=== PATIENT | male | born 1965 | race Caucasian/White ===

== ENCOUNTER 2017-11-17 09:12 | Emergency (ER) | payer OTHER ==
[~2017-11-17] VITALS: Ht 177.8 cm; Wt 94.3 kg
[~2017-11-17 09:12] MED LIST: ASPI-113 PO; GLIP5TAB11 PO; HYDR-4383 PO; METF1000 PO
[2017-11-17 09:15] VITALS: TEMP 36.8; Ht 177.8 cm; Wt 94.3 kg
[2017-11-17] MEDS ORDERED: ONDANSETRON INJ 2 MG/ML 2 ML VIAL IV STA (09:48)
[2017-11-17] MEDS ORDERED: MoRPHine SULFATE 4 MG/ML 1 ML CARP\\VIAL IV STA (09:48)
[2017-11-17 10:14] LABS: BASO % 0.1 %; BASO ABS # 0.01 K/uL (0-0.2); EOS % 0.7 %; EOS ABS # 0.07 K/uL (0-0.5); HEMATOCRIT 45.8 % (42-52); HEMOGLOBIN 17.2 g/dL (14.0-18.0); IG# 0.02 K/uL (0.00-0.02); LYMPH % 38.5 %; LYMPH ABS # 3.77 K/uL (1.2-3.4); MEAN CELL VOLUME 82.4 fL (80-100); MEAN CORPUSCULAR HEMOGLOBIN 30.9 pg (25-34); MEAN CORPUSCULAR HGB CONC 37.6 g/dl (32-36); MEAN PLATELET VOLUME 9.7 fL (7.4-10.4); MONO % 5.6 %; MONO ABS # 0.55 K/uL (0.11-0.59); NEUT % 54.9 %; NEUT ABS # 5.36 K/uL (1.4-6.5); PLATELET COUNT 190 K/uL (130-400); RED CELL DISTRIBUTION WIDTH SD 39.1 fL (36.4-46.3); WHITE BLOOD COUNT 9.78 K/uL (4.8-10.8)
--- NOTE | 2017-11-17 10:22 | EMERGENCY ROOM VISIT NOTE ---
History Report prepared by Mansi: Britton Ellis Under the Supervision of: Dr. Augustus Mays M.D. First contact with patient: 09:39 Chief Complaint: PENIS PAIN Stated Complaint: PAIN- WILL NOT DISCUSS WHERE Nursing Triage Summary: Pt states "My foreskin is retracted and I can't urinate and my penis is turning purple. This is the 3rd day." History of Present Illness The patient is a 52 year old male who presents to the Emergency Room with complaints of constant paraphimosis. The patient is uncircumcised. He states that his foreskin retracted and got stuck two days ago. He states that the foreskin tore as he tried to return the foreskin to normal position. The patient states that his penis has a purplish discoloration. He also complains of difficulty with urination. He denies fevers, or chills. The patient has a history of Type II Diabetes. He has a history of chronic back pain. Source of History: patient Onset: Two days ago Position: other (penis) Quality: other (paraphimosis) Timing: constant Associated Symptoms: + urinary symptoms (difficulty urinating), No fevers, No chills Review of Systems See HPI for pertinent positives & negatives. A total of 10 systems reviewed and were otherwise negative. Past Medical & Surgical Medical Problems: (1) Chronic back pain Old medical records were reviewed. Nurse's notes were reviewed and I agree with. Family History No pertinent family history stated. Social History Smoking Status: Current Some Day Smoker Current/Historical Medications Scheduled Aspirin Enteric Coated (Ecotrin Or Generic), 325 MG PO BID Glipizide (Glucotrol), 2.5 MG PO DAILY Metformin Hcl (Glucophage), 1,000 MG PO BID Allergies Coded Allergies: Penicillins (Verified Allergy, Unknown, UNKNOWN, 11/17/17) Sulfa Drugs (Verified Allergy, Unknown, UNKNOWN, 11/17/17) Physical Exam Vital Signs Date Time Temp Pulse Resp B/P (MAP) Pulse Ox O2 Delivery O2 Flow Rate FiO2 11/17/17 11:41 101 18 128/83 96 11/17/17 09:15 36.8 129 18 141/93 96 Room Air Physical Exam General: Non-ill appearing middle aged male in no acute distress. HEENT: Normal cephalic atraumatic. Pupils are equal round and reactive to light. Extraocular movements are intact. Oropharynx is pink with moist mucous membranes. No swelling of the mouth lips or tongue. Neck: Supple with a midline trachea. No meningeal signs or stiffness, no JVD or bruits. No Stridor. Chest: Clear to auscultation bilaterally. No wheezes or rhonchi. No increased work of breathing. Heart: regular rate and rhythm. Abdomen: Soft nontender, nondistended without rebound guarding or rigidity. : Tip of penis is significantly swollen and red. Extremities: No cyanosis clubbing or edema. No calf tenderness or assymetry Spine/Back. Non tender to palpation. No CVA tenderness Skin: Good turgor without rashes. Neurologic exam: Cranial nerves two through 12 are intact. Motor and sensation are intact and symmetrical throughout. Medical Decision & Procedures Laboratory Results 11/17/17 09:50 Red Blood Count 5.56, Mean Corpuscular Volume 82.4, Mean Corpuscular Hemoglobin 30.9, Mean Corpuscular Hemoglobin Concent 37.6, Mean Platelet Volume 9.7, Neutrophils (%) (Auto) 54.9, Lymphocytes (%) (Auto) 38.5, Monocytes (%) (Auto) 5.6, Eosinophils (%) (Auto) 0.7, Basophils (%) (Auto) 0.1, Neutrophils # (Auto) 5.36, Lymphocytes # (Auto) 3.77, Monocytes # (Auto) 0.55, Eosinophils # (Auto) 0.07, Basophils # (Auto) 0.01 11/17/17 09:50 Test 11/17/17 09:50 White Blood Count 9.78 K/uL (4.8-10.8) Red Blood Count 5.56 M/uL (4.7-6.1) Hemoglobin 17.2 g/dL (14.0-18.0) Hematocrit 45.8 % (42-52) Mean Corpuscular Volume 82.4 fL (80-100) Mean Corpuscular Hemoglobin 30.9 pg (25-34) Mean Corpuscular Hemoglobin Concent 37.6 g/dl (32-36) Platelet Count 190 K/uL (130-400) Mean Platelet Volume 9.7 fL (7.4-10.4) Neutrophils (%) (Auto) 54.9 % Lymphocytes (%) (Auto) 38.5 % Monocytes (%) (Auto) 5.6 % Eosinophils (%) (Auto) 0.7 % Basophils (%) (Auto) 0.1 % Neutrophils # (Auto) 5.36 K/uL (1.4-6.5) Lymphocytes # (Auto) 3.77 K/uL (1.2-3.4) Monocytes # (Auto) 0.55 K/uL (0.11-0.59) Eosinophils # (Auto) 0.07 K/uL (0-0.5) Basophils # (Auto) 0.01 K/uL (0-0.2) RDW Standard Deviation 39.1 fL (36.4-46.3) RDW Coefficient of Variation 13.0 % (11.5-14.5) Immature Granulocyte % (Auto) 0.2 % Immature Granulocyte # (Auto) 0.02 K/uL (0.00-0.02) Anion Gap 9.0 mmol/L (3-11) Est Creatinine Clear Calc Drug Dose 129.0 ml/min Estimated GFR () 121.4 Estimated GFR (Non- 104.7 BUN/Creatinine Ratio 18.9 (10-20) Calcium Level 9.2 mg/dl (8.5-10.1) Chemistry Specimen Hemolysis Laboratory studies as stated above per my review. Medications Administered Medications (Trade) Dose Ordered Sig/Jessica Route Start Time Stop Time Status Last Admin Dose Admin Morphine Sulfate (MoRPHine SULFATE INJ) 4 mg NOW STAT IV 11/17/17 09:48 11/17/17 09:49 DC 11/17/17 10:00 4 MG Ondansetron HCl (Zofran Inj) 4 mg NOW STAT IV 11/17/17 09:48 11/17/17 09:49 DC 11/17/17 09:59 4 MG Oxycodone HCl (Roxicodone Immediate Rel 5MG Home Pack) 1 homepack UD ONCE PO 11/17/17 11:45 11/17/17 11:46 DC 11/17/17 11:40 1 HOMEPACK ED Course 0939: Past medical records reviewed. The patient was evaluated in room C3, and a complete history and physical examination were performed. 0948: Ordered Zofran Inj 4 mg IV, Morphine Sulfate 4 mg IV. 1029: I checked in on the patient. Urology is at bedside. The patient feels comfortable. 1118: Upon reevaluation, the patient is resting comfortably. I discussed the results and treatment plan with him. He verbalized agreement of the treatment plan. The patient was discharged home. Medical Decision Differentials include, but are not limited to; paraphimosis, infection, and STI. This patient comes in as described above. He's had trouble with his foreskin retracting for 3 days now. He has pain and swelling in his penis. On exam, it does appear to be a band at the base with swollen glands. IV access was established was given morphine 4 mg IV and Zofran 4 mg IV. I called and consulted urology immediately after examining him. He was reassessed frequently. He was much more comfortable with this. He has no white count or fever to suggest infection. Blood sugar was elevated at 390 however he has no evidence suggest DKA. He is to check his blood sugar frequently home. The urology team arrived promptly and have reduced his foreskin and see him in the office for an elective circumcision. Medication Reconcilliation Current Medication List: was personally reviewed by me Blood Pressure Screening Patient's blood pressure: Elevated blood pressure Blood pressure disposition: Elevated BP felt to be situational Consults Time Called: 943 Consulting Physician: Mora MEZA - Urology Returned Call: [phone] Discussed the patient's case. Mora MEZA will come see the patient in the ED. 1108: Spoke with Mora MEZA. The patient successfully had his paraphimosis reduced. Mora Covarrubias feels that the patient is safe for discharge with outpatient follow up. Impression Primary Impression: Paraphimosis Scribe Attestation The scribe's documentation has been prepared under my direction and personally reviewed by me in its entirety. I confirm that the note above accurately reflects all work, treatment, procedures, and medical decision making performed by me. Departure Information Dispostion Home / Self-Care Forms HOME CARE DOCUMENTATION FORM, IMPORTANT VISIT INFORMATION, WORK / SCHOOL INSTRUCTIONS Patient Instructions My [facility] [employer] Additional Instructions Rest. Check her blood sugar frequently Return if: Increasing pain or swelling, recurrence of symptoms, fever or chills , trouble emptying her bladder, any new problems or concerns Follow-up with Dr. Lea for further definitive care
[2017-11-17] MEDS ORDERED: XYLOCAINE 1%/SOD BICARB 20 ML VIAL INFIL ONE (10:23)
[2017-11-17 10:46] LABS: CALCIUM 9.2 mg/dl (8.5-10.1); CREATININE 0.79 mg/dl (0.60-1.40); POTASSIUM 4.1 mmol/L (3.5-5.1)
--- NOTE | 2017-11-17 10:48 | Urology Consultation ---
History General Date of Service: Nov 17, 2017. Chief Complaint: retracted foreskin Primary Care Physician: No Doctor, Assigned Pt seen a urologist before?: No History of Present Illness 52 yo male presents to [facility] with c/o difficulty urinating and retracted foreskin x 3 days. He reports he has tried pulling his foreskin back over the glans himself, but has been unable to do so d/t the pain. He reports weak stream and hesitancy at this time. Denies dysuria or hematuria. He denies difficulty voiding prior to onset. Laboratory Last 24 Hours Test 11/17/17 09:50 White Blood Count 9.78 K/uL Red Blood Count 5.56 M/uL Hemoglobin 17.2 g/dL Hematocrit 45.8 % Mean Corpuscular Volume 82.4 fL Mean Corpuscular Hemoglobin 30.9 pg Mean Corpuscular Hemoglobin Concent 37.6 g/dl Platelet Count 190 K/uL Mean Platelet Volume 9.7 fL Neutrophils (%) (Auto) 54.9 % Lymphocytes (%) (Auto) 38.5 % Monocytes (%) (Auto) 5.6 % Eosinophils (%) (Auto) 0.7 % Basophils (%) (Auto) 0.1 % Neutrophils # (Auto) 5.36 K/uL Lymphocytes # (Auto) 3.77 K/uL Monocytes # (Auto) 0.55 K/uL Eosinophils # (Auto) 0.07 K/uL Basophils # (Auto) 0.01 K/uL RDW Standard Deviation 39.1 fL RDW Coefficient of Variation 13.0 % Immature Granulocyte % (Auto) 0.2 % Immature Granulocyte # (Auto) 0.02 K/uL Past History diabetes, other (hx of HTN and high cholesterol improved after losing 100lbs) Past Surgical History: THR, vasectomy Family History prostate cancer, heart disease, diabetes Social History Hx Tobacco Use In Past Year?: Yes (occasional, quit a year ago) Smoking: less than 1 pack/day Alcohol: occasional (1-2 beers per month) Drug use: none Marital status: Housing status: lives with family Occupation status: employed Immunizations History of Influenza Vaccine: No History of Tetanus Vaccine?: No History of Pneumococcal: No History of Hepatitis B Vaccine: No Allergies Coded Allergies: Penicillins (Verified Allergy, Unknown, UNKNOWN, 11/17/17) Sulfa Drugs (Verified Allergy, Unknown, UNKNOWN, 11/17/17) Medications Home Medications: Home Meds and Scripts Medications Dose Route/Sig Max Daily Dose Days Date Category Ecotrin Or Generic (Aspirin) 325 Mg Ectab 325 Mg PO BID 30 09/20/12 Rx Glucotrol (Glipizide) 5 Mg Tab 2.5 Mg PO DAILY 09/18/12 Reported Glucophage (Metformin Hcl) 1,000 Mg Tab 1,000 Mg PO BID 08/16/12 Reported Review of Systems Review of Systems Constitutional: No fever, No chills Eyes: No double vision Neurological: No dizzy Endocrine: No excessive thirst Gastrointestinal: + nausea, No abdominal pain, No vomiting Cardiovascular: No chest pain Respiratory: No shortness of breath Skin: No rash Musculoskeletal: No back pain Blood / Lymphatic: No bleed easily Male : + weak stream, No painful urination, No blood in urine Physical Exam Vital Signs: Vital Signs Past 12 Hours Date Time Temp Pulse Resp B/P (MAP) Pulse Ox O2 Delivery O2 Flow Rate FiO2 11/17/17 09:15 36.8 129 18 141/93 96 Room Air Physical Exam: General Appearance: no apparent distress Eyes: bilateral eyes normal inspection ENT: hearing grossly normal Neck: no JVD Respiratory/Chest: no respiratory distress, no accessory muscle use Cardiovascular: no JVD Genitourinary - Male: Penis: paraphimosis Extremities: normal inspection Neurologic/Psychiatric: alert, normal mood/affect, oriented x 3 Skin: normal color Assessment & Plan Assessment & Plan A/P: Paraphimosis Paraphimosis reduced by Dr. Lea today after 1% lidocaine penile injection block. Will arrange for outpatient f/u to discuss circumcision as an outpatient as desired by the pt. Pt with >700ml on bladder scan today. Will try to void on his own again. Place gonzales catheter if PVR >250ml after voiding. Pt OK for d/c home. Will arrange for outpatient f/u in the next week. Thanks for the consult.
[2017-11-17 11:41] VITALS: BP 128/83; PULSE 101; O2SAT 96
[2017-11-17] MEDS ORDERED: OXYCODONE IR HOME PACK PO ONE (11:45)
== END 2017-11-17 11:40 | disposition home or self-care (01) ==
LOC: C.EDB 09:14 → C.EDC 11:40
DX: N47.2 Paraphimosis (principal); E11.9 Type 2 diabetes mellitus without complications; G89.29 Other chronic pain; M54.9 Dorsalgia, unspecified; F17.210 Nicotine dependence, cigarettes, uncomplicated; Z79.899 Other long term (current) drug therapy; Z79.84 Long term (current) use of oral hypoglycemic drugs; Z98.52 Vasectomy status; Z96.649 Presence of unspecified artificial hip joint; Z80.42 Family history of malignant neoplasm of prostate; Z83.3 Family history of diabetes mellitus; Z79.82 Long term (current) use of aspirin